=== PATIENT | female | born 1990 | race Caucasian/White ===

== ENCOUNTER 2017-07-20 01:05 | Inpatient (IN) | payer BC ==
[2017-07-20] MEDS: LACTATED RINGER'S 1,000 ML IV (01:55)
[2017-07-20] MEDS ORDERED: MISOPROSTOL 200 MCG TAB PR ×2 (02:00→05:00)
[2017-07-20] MEDS ORDERED: BUTORPHANOL 2 MG INJ IV (02:00)
[2017-07-20] MEDS ORDERED: OXYTOCIN 30 UNITS/LR 500 ML IV ×2 (02:00→05:00)
[2017-07-20] MEDS ORDERED: METHYLERGONOVINE 0.2 MG INJ IM ×2 (02:00→05:00)
[2017-07-20] MEDS ORDERED: LIDOCAINE 1% (MPF) 30 ML INJ INJ (02:00)
[2017-07-20] MEDS ORDERED: CARBOPROST 250 MCG INJ IM ×2 (02:00→05:00)
[2017-07-20] MEDS ORDERED: IBUPROFEN 600 MG TAB PO (02:00)
[2017-07-20] MEDS: AMPICILLIN 2 GM/NS (PMX) 100 ML IV (02:08)
[2017-07-20 02:23] LABS: ADD MAN DIFF? NO; BASOPHILS % 0.2 % (0.0-2.0); EOSINOPHILS # 0.1 10^3/ul (0.0-0.5); EOSINOPHILS % 0.6 % (0.0-7.0); HEMATOCRIT 37.6 % (37.0-47.0); LYMPHOCYTES # 3.2 10^3/ul (0.8-2.9); LYMPHOCYTES % 38.6 % (15.0-51.0); MEAN CORPUSCULAR HEMOGLOBIN 31.2 pg (29.0-33.0); MEAN CORPUSCULAR HGB CONC 34.6 g/dl (32.0-37.0); MEAN CORPUSCULAR VOLUME 90.2 fl (82.0-101.0); MEAN PLATELET VOLUME 10.7 fl (7.4-10.4); MONOCYTE # 0.6 10^3/ul (0.3-0.9); MONOCYTES % 7.3 % (0.0-11.0); NEUTROPHIL # 4.4 10^3/ul (1.6-7.5); NEUTROPHILS % 52.8 % (39.0-77.0); PLATELET COUNT 348 10^3/UL (140-415); RED BLOOD COUNT 4.17 10^6/ul (4.20-5.40); RED CELL DISTRIBUTION WIDTH 13.1 % (11.5-14.5)
[2017-07-20 02:23] LABS: WHITE BLOOD COUNT 8.4 10^3/ul (4.8-10.8)
[2017-07-20 02:42] LABS: PARTIAL THROMBOPLASTIN TIME 24.3 Sec (25.0-35.0); PROTIME 13.3 Sec (11.9-14.9)
[2017-07-20 03:15] LABS: HEPATITIS B SURFACE ANTIGEN NEGATIVE (NEGATIVE)
[2017-07-20] MEDS: OXYTOCIN 30 UNITS/LR 500 ML IV ×2 (03:15)
[2017-07-20] MEDS ORDERED: BENZOCAINE 20% 56 ML SPRAY TOP (05:00)
[2017-07-20] MEDS ORDERED: WITCH HAZEL/GLYCERIN PAD PR (05:00)
[2017-07-20] MEDS ORDERED: ACETAMINOPHEN 325 MG TAB PO (05:00)
[2017-07-20] MEDS ORDERED: DIBUCAINE 1% 30 GM OINT PR (05:00)
[2017-07-20] MEDS ORDERED: HYDROCODONE/APAP (5/325) TAB PO (05:00)
[2017-07-20] MEDS ORDERED: AMPICILLIN 1 GM/NS (PMX) 50 ML IV (06:00)
[2017-07-20] MEDS: IBUPROFEN 600 MG TAB PO ×4 (06:27→23:53)
[2017-07-20] MEDS: SENNA/DOCUSATE NA (8.6MG/50MG) TAB PO ×2 (08:58→20:30)
[2017-07-20] MEDS: LACTATED RINGER'S 1,000 ML IV* (12:13)
[2017-07-20 15:08] LABS: RAPID PLASMA REAGIN NONREACTIVE (NR)
[2017-07-20] MEDS: LANOLIN 7 GM TUBE TOP (20:31)
[2017-07-21] MEDS: IBUPROFEN 600 MG TAB PO ×3 (05:41→18:02)
[2017-07-21] MEDS: SENNA/DOCUSATE NA (8.6MG/50MG) TAB PO ×2 (09:21→21:27)
[2017-07-21 09:37] LABS: ADD MAN DIFF? NO
[2017-07-21 09:39] LABS: BASOPHILS % 0.2 % (0.0-2.0); EOSINOPHILS # 0.1 10^3/ul (0.0-0.5); EOSINOPHILS % 1.1 % (0.0-7.0); HEMATOCRIT 33.3 % (37.0-47.0); HEMOGLOBIN 11.4 g/dl (12.0-16.0); LYMPHOCYTES # 2.9 10^3/ul (0.8-2.9); LYMPHOCYTES % 35.1 % (15.0-51.0); MEAN CORPUSCULAR HEMOGLOBIN 31.4 pg (29.0-33.0); MEAN CORPUSCULAR HGB CONC 34.2 g/dl (32.0-37.0); MEAN CORPUSCULAR VOLUME 91.7 fl (82.0-101.0); MEAN PLATELET VOLUME 10.4 fl (7.4-10.4); MONOCYTE # 0.7 10^3/ul (0.3-0.9); MONOCYTES % 7.9 % (0.0-11.0); NEUTROPHIL # 4.6 10^3/ul (1.6-7.5); NEUTROPHILS % 55.2 % (39.0-77.0); PLATELET COUNT 308 10^3/UL (140-415); RED BLOOD COUNT 3.63 10^6/ul (4.20-5.40); RED CELL DISTRIBUTION WIDTH 13.4 % (11.5-14.5)
[2017-07-21 09:39] LABS: WHITE BLOOD COUNT 8.3 10^3/ul (4.8-10.8)
[2017-07-22] MEDS: IBUPROFEN 600 MG TAB PO ×3 (00:28→12:07)
[2017-07-22] MEDS: SENNA/DOCUSATE NA (8.6MG/50MG) TAB PO (09:44)
[2017-07-22] MEDS: DIPHTH/TET/ACEL PERTUSS (ADULT) 0.5 ML VIAL IM* (10:26)
== END 2017-07-22 15:35 | disposition home or self-care (01) | DRG 775 ==
LOC: OBT 01:05 → L-D 01:05 → OBT 01:45 → L-D 01:45 → PP1 04:35
PROVIDERS: Obstetrics & Gynecology
PROC: 10E0XZZ Delivery of Products of Conception, External Approach (ICD-10-PCS; principal; 2017-07-20)
DX: O80 Encounter for full-term uncomplicated delivery (principal); Z3A.39 39 weeks gestation of pregnancy; Z37.0 Single live birth
CPT/HCPCS: 85025; 85610; 85730; 86592; 86850; 86900; 86901; 87340; 90715